=== PATIENT | female | born 1975 | race Caucasian/White ===

== ENCOUNTER 2019-03-04 14:50 | Inpatient (IN) | payer OTHER ==
[2019-03-04] MEDS ORDERED: ONDANSETRON 4 MG INJ IV (15:00)
[2019-03-04] MEDS ORDERED: HYDROCODONE/APAP (5/325) TAB PO ×2 (15:00)
[2019-03-04] MEDS ORDERED: NACL 0.9% 3 ML SYG IV (15:00)
[2019-03-04] MEDS ORDERED: morphine 2 MG INJ IV (15:00)
[2019-03-04] MEDS ORDERED: MAGNESIUM HYDROXIDE 30ML CUP PO (15:00)
[2019-03-04] MEDS ORDERED: DOCUSATE SODIUM 100 MG CAP PO (15:00)
[2019-03-04] MEDS: DEXTROSE 5%-0.45% NACL 1,000 ML IV (15:53)
[2019-03-04] MEDS: FAMOTIDINE 20 MG INJ IV (20:52)
[2019-03-05] MEDS: DEXTROSE 5%-0.45% NACL 1,000 ML IV ×4 (00:59→20:24)
[2019-03-05 05:16] LABS: ADD MAN DIFF? NO
[2019-03-05 05:24] LABS: WHITE BLOOD COUNT 9.2 10^3/ul (4.8-10.8)
[2019-03-05 05:24] LABS: BASOPHILS % 0.2 % (0.0-2.0); EOSINOPHILS # 0.1 10^3/ul (0.0-0.5); EOSINOPHILS % 1.3 % (0.0-7.0); HEMATOCRIT 35.2 % (37.0-47.0); HEMOGLOBIN 11.6 g/dl (12.0-16.0); LYMPHOCYTES # 1.7 10^3/ul (0.8-2.9); LYMPHOCYTES % 18.1 % (15.0-51.0); MEAN CORPUSCULAR HEMOGLOBIN 30.6 pg (29.0-33.0); MEAN CORPUSCULAR VOLUME 92.9 fl (82.0-101.0); MONOCYTE # 0.9 10^3/ul (0.3-0.9); MONOCYTES % 9.2 % (0.0-11.0); NEUTROPHIL # 6.5 10^3/ul (1.6-7.5); NEUTROPHILS % 70.2 % (39.0-77.0); PLATELET COUNT 218 10^3/UL (140-415); RED BLOOD COUNT 3.79 10^6/ul (4.20-5.40); RED CELL DISTRIBUTION WIDTH 12.7 % (11.5-14.5)
[2019-03-05 05:52] LABS: CHOLESTEROL 224 mg/dl (100-200)
[2019-03-05 05:52] LABS: CHOL/HDL RATIO 5.7 RATIO; HDL CHOLESTEROL 39 mg/dl (34-88); LDL CHOLESTEROL,CALCULATED 144 mg/dl; TRIGLYCERIDES 205 mg/dl (0-149)
[2019-03-05 06:08] LABS: ALANINE AMINOTRANSFERASE 123 IU/L (13-69); ALBUMIN 3.6 g/dl (3.3-4.9); ALBUMIN/GLOBULIN RATIO 1.09; ALKALINE PHOSPHATASE 101 IU/L (42-121); ANION GAP 6 (5-13); ASPARTATE AMINO TRANSFERASE 102 IU/L (15-46); BILIRUBIN,INDIRECT 1.3 mg/dl (0-1.1); BILIRUBIN,TOTAL 1.3 mg/dl (0.2-1.3); BLOOD UREA NITROGEN 8 mg/dl (7-20); CALCIUM 8.4 mg/dl (8.4-10.2); CARBON DIOXIDE 28 mmol/L (21-31); CHLORIDE 105 mmol/L (97-110); CREATININE 0.57 mg/dl (0.44-1.00); Estimated GFR > 60 mL/min (>60); GLUCOSE 138 mg/dl (70-220); MAGNESIUM 2.1 mg/dl (1.7-2.5); SODIUM 139 mmol/L (135-144); TOTAL PROTEIN 6.9 g/dl (6.1-8.1)
[2019-03-05] MEDS: FAMOTIDINE 20 MG INJ IV ×2 (08:44→20:25)
[2019-03-05 09:53] LABS: AMYLASE 316 U/L (11-123)
[2019-03-05 09:53] LABS: LIPASE 1732 U/L (23-300)
[2019-03-05 11:58] LABS: IRON 66 ug/dl (35-150)
[2019-03-05 12:07] LABS: % IRON SATURATION 23 % SAT (22-52); TOTAL IRON BINDING CAPACITY 287 ug/dl (241-421)
[2019-03-05 12:34] LABS: FERRITIN 42.9 ng/ml (6.2-137.0)
[2019-03-06 05:13] LABS: ADD MAN DIFF? NO
[2019-03-06 05:15] LABS: BASOPHILS % 0.4 % (0.0-2.0); EOSINOPHILS # 0.2 10^3/ul (0.0-0.5); HEMATOCRIT 35.2 % (37.0-47.0); HEMOGLOBIN 11.5 g/dl (12.0-16.0); LYMPHOCYTES # 2.2 10^3/ul (0.8-2.9); LYMPHOCYTES % 27.3 % (15.0-51.0); MEAN CORPUSCULAR HEMOGLOBIN 30.7 pg (29.0-33.0); MEAN CORPUSCULAR HGB CONC 32.7 g/dl (32.0-37.0); MEAN CORPUSCULAR VOLUME 94.1 fl (82.0-101.0); MEAN PLATELET VOLUME 9.2 fl (7.4-10.4); MONOCYTE # 0.7 10^3/ul (0.3-0.9); MONOCYTES % 8.1 % (0.0-11.0); NEUTROPHILS % 61.2 % (39.0-77.0); PLATELET COUNT 210 10^3/UL (140-415); RED BLOOD COUNT 3.74 10^6/ul (4.20-5.40); RED CELL DISTRIBUTION WIDTH 12.7 % (11.5-14.5)
[2019-03-06 05:15] LABS: WHITE BLOOD COUNT 8.2 10^3/ul (4.8-10.8)
[2019-03-06] MEDS: DEXTROSE 5%-0.45% NACL 1,000 ML IV ×2 (06:23→16:04)
[2019-03-06 06:45] LABS: ALANINE AMINOTRANSFERASE 84 IU/L (13-69); ALBUMIN 3.5 g/dl (3.3-4.9); ALBUMIN/GLOBULIN RATIO 1.06; ALKALINE PHOSPHATASE 89 IU/L (42-121); AMYLASE 149 U/L (11-123); ANION GAP 7 (5-13); ASPARTATE AMINO TRANSFERASE 54 IU/L (15-46); BILIRUBIN,INDIRECT 0.9 mg/dl (0-1.1); BILIRUBIN,TOTAL 0.9 mg/dl (0.2-1.3); BLOOD UREA NITROGEN 4 mg/dl (7-20); CALCIUM 8.5 mg/dl (8.4-10.2); CARBON DIOXIDE 26 mmol/L (21-31); CHLORIDE 108 mmol/L (97-110); CREATININE 0.55 mg/dl (0.44-1.00); Estimated GFR > 60 mL/min (>60); GLUCOSE 138 mg/dl (70-220); LIPASE 366 U/L (23-300); POTASSIUM 4.1 mmol/L (3.5-5.1); SODIUM 141 mmol/L (135-144); TOTAL PROTEIN 6.8 g/dl (6.1-8.1)
[2019-03-06] MEDS: FAMOTIDINE 20 MG INJ IV (08:10)
[2019-03-06] MEDS: PANTOPRAZOLE (EC) 40 MG TAB PO (11:14)
[2019-03-07] MEDS: DEXTROSE 5%-0.45% NACL 1,000 ML IV ×3 (03:36→15:31)
[2019-03-07 05:09] LABS: ADD MAN DIFF? NO
[2019-03-07 05:22] LABS: WHITE BLOOD COUNT 7.7 10^3/ul (4.8-10.8)
[2019-03-07 05:22] LABS: BASOPHILS % 0.5 % (0.0-2.0); EOSINOPHILS # 0.2 10^3/ul (0.0-0.5); EOSINOPHILS % 2.6 % (0.0-7.0); HEMATOCRIT 37.7 % (37.0-47.0); HEMOGLOBIN 12.2 g/dl (12.0-16.0); LYMPHOCYTES # 1.7 10^3/ul (0.8-2.9); LYMPHOCYTES % 21.8 % (15.0-51.0); MEAN CORPUSCULAR HEMOGLOBIN 30.3 pg (29.0-33.0); MEAN CORPUSCULAR HGB CONC 32.4 g/dl (32.0-37.0); MEAN CORPUSCULAR VOLUME 93.8 fl (82.0-101.0); MEAN PLATELET VOLUME 9.1 fl (7.4-10.4); MONOCYTE # 0.6 10^3/ul (0.3-0.9); MONOCYTES % 8.2 % (0.0-11.0); NEUTROPHIL # 5.1 10^3/ul (1.6-7.5); NEUTROPHILS % 65.7 % (39.0-77.0); PLATELET COUNT 243 10^3/UL (140-415); RED BLOOD COUNT 4.02 10^6/ul (4.20-5.40); RED CELL DISTRIBUTION WIDTH 12.4 % (11.5-14.5)
[2019-03-07] MEDS: PANTOPRAZOLE (EC) 40 MG TAB PO (05:22)
[2019-03-07 05:45] LABS: ALANINE AMINOTRANSFERASE 65 IU/L (13-69); ALBUMIN 3.6 g/dl (3.3-4.9); ALBUMIN/GLOBULIN RATIO 1.09; ALKALINE PHOSPHATASE 82 IU/L (42-121); AMYLASE 101 U/L (11-123); ANION GAP 7 (5-13); ASPARTATE AMINO TRANSFERASE 33 IU/L (15-46); BILIRUBIN,INDIRECT 0.8 mg/dl (0-1.1); BILIRUBIN,TOTAL 0.8 mg/dl (0.2-1.3); BLOOD UREA NITROGEN 3 mg/dl (7-20); CALCIUM 8.6 mg/dl (8.4-10.2); CARBON DIOXIDE 26 mmol/L (21-31); CHLORIDE 109 mmol/L (97-110); CREATININE 0.55 mg/dl (0.44-1.00); Estimated GFR > 60 mL/min (>60); GLUCOSE 136 mg/dl (70-220); LIPASE 293 U/L (23-300); POTASSIUM 3.8 mmol/L (3.5-5.1); SODIUM 142 mmol/L (135-144); TOTAL PROTEIN 6.9 g/dl (6.1-8.1)
[2019-03-07] MEDS ORDERED: BUPIVACAINE 0.25%/EPI (SDV) 30 ML INJ (06:56)
[2019-03-07] MEDS ORDERED: LIDOCAINE 1% (MPF) 30 ML INJ (06:56)
[2019-03-07] MEDS ORDERED: ONDANSETRON 4 MG INJ IV (07:30)
[2019-03-07] MEDS ORDERED: DIPHENHYDRAMINE 50 MG INJ IV (07:30)
[2019-03-07] MEDS ORDERED: HYDROmorphONE 1 MG/5 ML IV SYRINGE IV ×2 (07:30)
[2019-03-07] MEDS ORDERED: PROCHLORPERAZINE 10 MG INJ IV (07:30)
[2019-03-07] MEDS ORDERED: FENTAnyl 50 MCG/ML VIAL IV ×3 (07:30)
[2019-03-07] MEDS ORDERED: PROPOFOL 20 ML ×2 (07:32→08:06)
[2019-03-07] MEDS ORDERED: SUCCINYLCHOLINE CHLORIDE 100 MG/5 ML SYG IV (07:32)
[2019-03-07] MEDS ORDERED: ROCURONIUM 50 MG INJ (07:32)
[2019-03-07] MEDS ORDERED: LIDOCAINE 2% (SDV) 5 ML INJ (07:32)
[2019-03-07] MEDS ORDERED: MIDAZOLAM 1 MG/ML 2 ML INJ (07:32)
[2019-03-07] MEDS ORDERED: FENTAnyl 50 MCG/ML VIAL (07:32)
[2019-03-07] MEDS ORDERED: ROPIVACAINE 0.5 % 30 ML VIAL (07:45)
[2019-03-07] MEDS ORDERED: ONDANSETRON 4 MG INJ (08:06)
[2019-03-07] MEDS ORDERED: CEFAZOLIN 1 GM INJ (08:06)
[2019-03-07] MEDS ORDERED: DEXAMETHASONE 4 MG/ML 5 ML INJ (08:06)
[2019-03-07] MEDS ORDERED: HYDROmorphONE 2 MG/ML SYG (08:41)
[2019-03-07] MEDS ORDERED: SUGAMMADEX SODIUM 200 MG/2 ML VIAL IV ×2 (09:16→09:18)
[2019-03-07] MEDS ORDERED: KETOROLAC 30 MG INJ IV (10:00)
[2019-03-07] MEDS: MEPERIDINE 25 MG INJ IV (10:09)
[2019-03-07] MEDS: HYDROmorphONE 1 MG/5 ML IV SYRINGE IV (10:10)
[2019-03-07] MEDS: CEFAZOLIN 1 GM/50 ML (PMX) 50 ML IVPB ×2 (15:31→21:11)
[2019-03-08] MEDS: DEXTROSE 5%-0.45% NACL 1,000 ML IV (03:51)
[2019-03-08 05:03] LABS: ADD MAN DIFF? NO
[2019-03-08 05:13] LABS: WHITE BLOOD COUNT 14.3 10^3/ul (4.8-10.8)
[2019-03-08 05:13] LABS: BASOPHILS % 0.1 % (0.0-2.0); HEMATOCRIT 36.2 % (37.0-47.0); HEMOGLOBIN 11.8 g/dl (12.0-16.0); LYMPHOCYTES # 1.6 10^3/ul (0.8-2.9); LYMPHOCYTES % 11.3 % (15.0-51.0); MEAN CORPUSCULAR HEMOGLOBIN 30.5 pg (29.0-33.0); MEAN CORPUSCULAR HGB CONC 32.6 g/dl (32.0-37.0); MEAN CORPUSCULAR VOLUME 93.5 fl (82.0-101.0); MONOCYTE # 0.9 10^3/ul (0.3-0.9); MONOCYTES % 6.5 % (0.0-11.0); NEUTROPHIL # 11.7 10^3/ul (1.6-7.5); NEUTROPHILS % 81.4 % (39.0-77.0); PLATELET COUNT 264 10^3/UL (140-415); RED BLOOD COUNT 3.87 10^6/ul (4.20-5.40); RED CELL DISTRIBUTION WIDTH 12.6 % (11.5-14.5)
[2019-03-08 05:28] LABS: ANION GAP 7 (5-13); BLOOD UREA NITROGEN 4 mg/dl (7-20); CALCIUM 9.1 mg/dl (8.4-10.2); CARBON DIOXIDE 27 mmol/L (21-31); CHLORIDE 107 mmol/L (97-110); CREATININE 0.55 mg/dl (0.44-1.00); Estimated GFR > 60 mL/min (>60); GLUCOSE 147 mg/dl (70-220); SODIUM 141 mmol/L (135-144)
[2019-03-08] MEDS: CEFAZOLIN 1 GM/50 ML (PMX) 50 ML IVPB (05:35)
[2019-03-08] MEDS: PANTOPRAZOLE (EC) 40 MG TAB PO (05:36)
[2019-03-09 05:27] LABS: ADD MAN DIFF? NO
[2019-03-09 05:29] LABS: BASOPHILS % 0.3 % (0.0-2.0); EOSINOPHILS # 0.1 10^3/ul (0.0-0.5); EOSINOPHILS % 1.2 % (0.0-7.0); HEMATOCRIT 36.5 % (37.0-47.0); HEMOGLOBIN 11.7 g/dl (12.0-16.0); LYMPHOCYTES # 2.6 10^3/ul (0.8-2.9); LYMPHOCYTES % 25.8 % (15.0-51.0); MEAN CORPUSCULAR HEMOGLOBIN 30.2 pg (29.0-33.0); MEAN CORPUSCULAR HGB CONC 32.1 g/dl (32.0-37.0); MEAN CORPUSCULAR VOLUME 94.1 fl (82.0-101.0); MONOCYTE # 0.7 10^3/ul (0.3-0.9); MONOCYTES % 7.2 % (0.0-11.0); NEUTROPHIL # 6.5 10^3/ul (1.6-7.5); NEUTROPHILS % 64.8 % (39.0-77.0); PLATELET COUNT 263 10^3/UL (140-415); RED BLOOD COUNT 3.88 10^6/ul (4.20-5.40); RED CELL DISTRIBUTION WIDTH 12.9 % (11.5-14.5)
[2019-03-09 05:29] LABS: WHITE BLOOD COUNT 10.1 10^3/ul (4.8-10.8)
[2019-03-09] MEDS: PANTOPRAZOLE (EC) 40 MG TAB PO (06:00)
[2019-03-09] MEDS: ACETAMINOPHEN 325 MG TAB PO (08:59)
== END 2019-03-09 14:12 | disposition home health service (06) | DRG 419 ==
LOC: MS1 14:50
PROVIDERS: Internal Medicine
PROC: 0FT44ZZ Resection of Gallbladder, Percutaneous Endoscopic Approach (ICD-10-PCS; principal; 2019-03-07 07:30)
PROC: 0FB04ZX Excision of Liver, Percutaneous Endoscopic Approach, Diagnostic (ICD-10-PCS; 2019-03-07 07:30)
PROC: BF13YZZ Fluoroscopy of Gallbladder and Bile Ducts using Other Contrast (ICD-10-PCS; 2019-03-07 07:30)
DX: K85.10 Biliary acute pancreatitis without necrosis or infection (principal); K80.20 Calculus of gallbladder without cholecystitis without obstruction; E66.9 Obesity, unspecified; D64.9 Anemia, unspecified; R19.8 Other specified symptoms and signs involving the digestive system and abdomen; K82.8 Other specified diseases of gallbladder; Z68.37 Body mass index [BMI] 37.0-37.9, adult
CPT/HCPCS: 74181; 80048; 80053; 80061; 82150; 82728; 83540; 83690; 83735; 84703; 85025; 88304; 88307; 88313

== ENCOUNTER 2019-03-12 00:29 | Emergency (ER) | payer OTHER ==
[2019-03-12] MEDS: LACTATED RINGER'S 1,000 ML IV (01:19)
[2019-03-12] MEDS: morphine 4 MG/ML VIAL IV (01:19)
[2019-03-12] MEDS: ONDANSETRON 4 MG INJ IV (01:19)
[2019-03-12 01:21] LABS: ADD MAN DIFF? NO
[2019-03-12 01:22] LABS: WHITE BLOOD COUNT 10.5 10^3/ul (4.8-10.8)
[2019-03-12 01:22] LABS: BASOPHIL # 0.1 10^3/ul (0.0-0.1); BASOPHILS % 0.5 % (0.0-2.0); EOSINOPHILS # 0.3 10^3/ul (0.0-0.5); EOSINOPHILS % 2.9 % (0.0-7.0); HEMATOCRIT 39.6 % (37.0-47.0); LYMPHOCYTES # 2.5 10^3/ul (0.8-2.9); LYMPHOCYTES % 24.1 % (15.0-51.0); MEAN CORPUSCULAR HEMOGLOBIN 30.5 pg (29.0-33.0); MEAN CORPUSCULAR HGB CONC 32.8 g/dl (32.0-37.0); MEAN PLATELET VOLUME 8.6 fl (7.4-10.4); MONOCYTE # 0.7 10^3/ul (0.3-0.9); NEUTROPHIL # 6.8 10^3/ul (1.6-7.5); NEUTROPHILS % 64.3 % (39.0-77.0); PLATELET COUNT 325 10^3/UL (140-415); RED BLOOD COUNT 4.26 10^6/ul (4.20-5.40); RED CELL DISTRIBUTION WIDTH 12.3 % (11.5-14.5)
[2019-03-12 01:45] LABS: ALANINE AMINOTRANSFERASE 39 IU/L (13-69); ALBUMIN 4.3 g/dl (3.3-4.9); ALBUMIN/GLOBULIN RATIO 1.16; ALKALINE PHOSPHATASE 97 IU/L (42-121); ANION GAP 10 (5-13); ASPARTATE AMINO TRANSFERASE 23 IU/L (15-46); BILIRUBIN,INDIRECT 0.5 mg/dl (0-1.1); BILIRUBIN,TOTAL 0.5 mg/dl (0.2-1.3); BLOOD UREA NITROGEN 18 mg/dl (7-20); CALCIUM 9.1 mg/dl (8.4-10.2); CARBON DIOXIDE 27 mmol/L (21-31); CHLORIDE 104 mmol/L (97-110); CREATININE 0.69 mg/dl (0.44-1.00); Estimated GFR > 60 mL/min (>60); GLUCOSE 131 mg/dl (70-220); LIPASE 251 U/L (23-300); POTASSIUM 4.3 mmol/L (3.5-5.1); SODIUM 141 mmol/L (135-144)
[2019-03-12] MEDS: SOD CHLORIDE 0.9% 100 ML (02:19)
[2019-03-12] MEDS: IOHEXOL 300MG/ML 150 ML BTL (02:19)
== END 2019-03-12 03:29 | disposition home or self-care (01) ==
LOC: E/R 00:29
DX: G89.18 Other acute postprocedural pain (principal); E66.9 Obesity, unspecified
CPT/HCPCS: 36415; 74177; 80053; 83690; 85025; 96374; 96375; 99285-25